=== PATIENT | male | born 1950 | race Caucasian/White ===

== ENCOUNTER 2016-11-09 16:11 | Emergency (ER) | payer OTHER ==
[~2016-11-09] VITALS: Ht 167.6 cm; Wt 86.4 kg
[2016-11-09 16:26] VITALS: BP 162/96
[2016-11-09] MEDS ORDERED: LIPI20TA PO (16:41)
[2016-11-09] MEDS ORDERED: ALPH0.156 OS (16:41)
[2016-11-09] MEDS ORDERED: ASPI1TAB PO (16:41)
[2016-11-09] MEDS ORDERED: IBUP-1022 PO (16:51)
== END 2016-11-09 17:14 | disposition home or self-care (01) ==
LOC: EDBD 16:11 → M ED 16:11
DX: S50.02XA Contusion of left elbow, initial encounter (principal); T14.8 Other injury of unspecified body region; V43.52XA Car driver injured in collision with other type car in traffic accident, initial encounter; Y92.410 Unspecified street and highway as the place of occurrence of the external cause; Y93.9 Activity, unspecified; Y99.9 Unspecified external cause status; Z79.82 Long term (current) use of aspirin; Z79.899 Other long term (current) drug therapy